=== PATIENT | female | born 1975 | race Caucasian/White ===

== ENCOUNTER → 2017-01-26 | Outpatient (CLI) | payer BC ==
[~2017-01-26] MED LIST: ASCO250T5 PO; LEVO112T2 PO
--- NOTE | 2017-01-26 13:48 | MAMMOGRAPHY REPORT ---
BILATERAL DIGITAL SCREENING MAMMOGRAM TOMOSYNTHESIS WITH CAD: 01/26/2017 TECHNIQUE: Breast tomosynthesis in addition to standard 2D mammography was performed. Current study was also evaluated with a Computer Aided Detection (CAD) system. COMPARISON: Comparison is made to exams dated: 01/21/2016 mammogram, 01/12/2015 mammogram - [facility], and 10/23/2007. BREAST COMPOSITION: The tissue of both breasts is extremely dense, which lowers the sensitivity of m ammography. FINDINGS: No suspicious masses, calcifications, or areas of architectural distortion are noted in ei ther breast. There has been no significant interval change compared to prior exams. Scattered bilater al benign-appearing calcifications are not significantly changed. IMPRESSION: ACR BI-RADS CATEGORY 2: BENIGN There is no mammographic evidence of malignancy. A 1 year screening mammogram is recommended. The pa tient will receive written notification of the results. Approximately 10% of breast cancers are not detected with mammography. A negative mammographic report should not delay biopsy if a clinically suggestive mass is present. Gogo Flood M.D. ah/:01/26/2017 11:52:13 Trainman: Bea CRAMER(R)(M), [facility] letter sent: Normal 1/2 BI-RADS Code: ACR BI-RADS Category 2: Benign
== END | disposition home or self-care (01) ==
LOC: C.MAMM 11:05
PROVIDERS: ATTEND Obstetrics & Gynecology
DX: Z12.31 Encounter for screening mammogram for malignant neoplasm of breast (principal)